=== PATIENT | male | born 1980 | race Caucasian/White ===

== ENCOUNTER 2019-06-30 11:26 | Emergency (ER) | payer OTHER ==
[2019-06-30] MEDS ORDERED: Sodium Chloride 0.9% 10 ML Syringe FLUSH PRN (11:54)
[2019-06-30] MEDS ORDERED: Sodium Chloride 0.9% 1,000 ML IV ONE (12:04)
--- NOTE | 2019-06-30 12:20 | CR ---
[id number] RAD/RAD Chest PA or AP 1V EXAM: FRONTAL CHEST INDICATION: TACHYCARDIA. COMPARISON: None. DISCUSSION: The lungs are hypoinflated with central vascular crowding and left base subsegmental atelectasis. Normal heart size. IMPRESSION: 1. Low lung volumes. Kwabena Knowles MD 06/30/19 [id number] Thank you for allowing us to participate in the care of your patient.
[2019-06-30 12:52] LABS: CHLORIDE,CL 97 mmol/L (54-184); SODIUM,NA 140 mmol/L (69-191)
[2019-06-30 12:55] LABS: ANION GAP 20.3 mmol/L (10-20)
[2019-06-30] MEDS ORDERED: Iopamidol 612 MG/ML 100 ML Bottle IVPUSH ONE (13:19)
[2019-06-30] MEDS ORDERED: Lactated Ringers 1,000 ML IV ONE (13:36)
[2019-06-30 13:42] LABS: BUPRENORPHINE,URINE NEGATIVE (NEGATIVE); MARIJUANA,URINE NEGATIVE (NEGATIVE); METHYLENEDIOXYMETHAMP,UR NEGATIVE (NEGATIVE); PHENCYCLIDINE,URINE NEGATIVE (NEGATIVE)
--- NOTE | 2019-06-30 14:12 | CT ---
[id number] CT/CT Chest Abdomen Pelvis W IV EXAM: CHEST ABDOMEN AND PELVIS CT WITH CONTRAST INDICATION: Weakness, tachycardia and elevated white blood cell count. COMPARISON: None. DISCUSSION: Enlarged 23 x 14 mm right axillary lymph node. No other enlarged axillary, hilar or mediastinal nodes are identified. The lungs are clear. No pleural or pericardial effusion. No infiltrates. The liver is enlarged with diffuse fatty infiltration and heterogeneous enhancement, but no discrete liver lesion identified. Findings are suggestive of chronic underlying liver disease. The gallbladder is partially decompressed and has a thick-walled appearance likely relating to the underlying liver disease. If there is concern for cholecystitis HIDA scan or ultrasound may be useful for further evaluation. A mild thick-walled appearance of the bladder is thought to relate to incomplete distention, correlate with urinalysis as clinically indicated. Mild apparent wall thickening of the proximal colon likely from incomplete distention and liver disease. If there is diarrhea, colitis would be another consideration. Small volume ascites. Mild retroperitoneal adenopathy with direct sales representative node measuring 45 x 7 mm. The kidneys, adrenal glands, spleen, pancreas and small bowel are unremarkable. The appendix is not well seen. The osseous structures are unremarkable. IMPRESSION: 1. Mild right axillary and retroperitoneal lymphadenopathy. 2. Enlarged liver with fatty infiltration and heterogeneous enhancement concerning for chronic underlying liver disease. 3. Small ascites. 4. A mild thick-walled appearance of the colon and gallbladder thought to be from incomplete distention and underlying liver disease. Dedicated gallbladder imaging with ultrasound/HIDA scan could provide further evaluation if clinical signs and symptoms are equivocal. Kwabena Knowles MD 06/30/19 [id number] Thank you for allowing us to participate in the care of your patient.
[2019-06-30] MEDS ORDERED: cefTRIAXone 2 GM Vial IVPUSH ONE (14:14)
[2019-06-30] MEDS ORDERED: LORazepam 2 MG/ML SDV IVPUSH ONE (14:48)
--- NOTE | 2019-06-30 14:57 | EDM.PDOC ---
ED HPI GENERAL MEDICAL PROBLEM - General Chief Complaint: Cardiovascular Problem Stated Complaint: FAST HEART RATE Time Seen by Provider: 06/30/19 11:33 Source of Information: Reports: Patient, Family History Limitations: Reports: No Limitations - History of Present Illness INITIAL COMMENTS - FREE TEXT/NARRATIVE: Pt. presents to ER with complaints of racing heart. Pt. states that he drank a large amount of alcohol last night, and noticed his heart was racing when he woke this AM. He denies any chest pain. No shortness of breath. Pt. denies any symptoms other than palpitations. He denies any nausea or vomiting. No abdominal pain or diarrhea. He denies any stimulant or use of other drugs. He denies any recent trauma. No recent illness. Denies any chest congestion, sore throat, sinus pain, or skin rash. He has been diaphoretic today. Pt. states that he drinks approx. 1/2 of a large bottle of vodka a day. He thinks they are liter bottles. He states that sometimes he also drinks beer. He states that he often feels anxious and agitated if he is unable to consume alcohol. He has never been formally diagnosed with alcoholism, and has never been through treatment, however he is interested in this. Onset: Today Onset Date: 06/30/19 Location: Reports: Chest, Generalized Associated Symptoms: Reports: Diaphoresis. Denies: Confusion, Chest Pain, Cough , cough w sputum, Fever/Chills, Headaches, Nausea/Vomiting, Rash, Seizure, Shortness of Breath, Weakness - Related Data Allergies Allergy/AdvReac Type Severity Reaction Status Date / Time No Known Allergies Allergy Verified 06/30/19 11:58 Home Meds: Home Meds Albuterol Sulfate [Albuterol Sulfate Hfa] 2 puff Q4H PRN 06/30/19 [History] Budesonide/Formoterol Fumarate [Symbicort 160-4.5 Mcg Inhaler] 2 puff BID [History] Fluticasone Propionate 1 spray BID 06/30/19 [History] amLODIPine [Norvasc] 5 mg DAILY 06/30/19 [History] Past Medical History Cardiovascular History: Reports: Hypertension Respiratory History: Reports: Asthma Social & Family History - Family History Family Medical History: Noncontributory - Tobacco Use Smoking Status *Q: Never Smoker - Recreational Drug Use Recreational Drug Use: No ED ROS GENERAL - Review of Systems Review Of Systems: See Below Constitutional: Reports: No Symptoms HEENT: Reports: No Symptoms Respiratory: Reports: No Symptoms Cardiovascular: Reports: Palpitations. Denies: Chest Pain, Dyspnea on Exertion , Lightheadedness, Orthopnea, PND, Syncope Endocrine: Reports: No Symptoms GI/Abdominal: Reports: No Symptoms : Reports: No Symptoms Musculoskeletal: Reports: No Symptoms Skin: Reports: No Symptoms Neurological: Reports: No Symptoms Psychiatric: Reports: Agitation, Anxiety Hematologic/Lymphatic: Reports: No Symptoms Immunologic: Reports: No Symptoms ED EXAM, GENERAL - Physical Exam Exam: See Below Exam Limited By: No Limitations General Appearance: Alert, WD/WN, No Apparent Distress Eye Exam: Bilateral Eye: EOMI, Normal Fundi, Normal Inspection, PERRL Nose: Normal Inspection, No Blood Throat/Mouth: Normal Inspection, Normal Lips, Normal Teeth, Normal Gums, Normal Oropharynx, Normal Voice, No Airway Compromise Head: Atraumatic, Normocephalic Neck: Normal Inspection, Supple, Non-Tender, Full Range of Motion Respiratory/Chest: No Respiratory Distress, Lungs Clear, Normal Breath Sounds, No Accessory Muscle Use, Chest Non-Tender Cardiovascular: Normal Peripheral Pulses, No Edema, No Gallop, No JVD, No Murmur , No Rub, Tachycardia Peripheral Pulses: 4+: Radial (R) GI/Abdominal: Normal Bowel Sounds, Soft, Non-Tender, No Organomegaly, No Distention, No Abnormal Bruit, No Mass, Pelvis Stable (Male) Exam: Deferred Rectal (Males) Exam: Deferred Back Exam: Normal Inspection, Full Range of Motion Extremities: Normal Inspection, Normal Range of Motion, Non-Tender, No Pedal Edema, Normal Capillary Refill Neurological: Alert, Oriented, CN II-XII Intact, Normal Cognition, Normal Gait, Normal Reflexes, No Motor/Sensory Deficits Psychiatric: Anxious Skin Exam: Cool, Diaphoretic Lymphatic: No Adenopathy EKG INTERPRETATION Rhythm: NSR [place]: Normal P-Wave: Present QRS: Normal ST-T: Normal QT: Normal Course - Vital Signs Last Recorded V/S: Last Vital Signs Temp 36.6 C 06/30/19 11:33 Pulse 130 H 06/30/19 11:33 Resp 18 06/30/19 11:33 BP 159/104 H 06/30/19 12:13 Pulse Ox 94 L 06/30/19 11:33 - Orders/Labs/Meds Orders: Active Orders 24 hr Category Date Time Status CULTURE BLOOD [BC] Stat Lab 06/30/19 13:54 Received CULTURE BLOOD [BC] Stat Lab 06/30/19 14:01 Received VITAMIN B12 [REF] Stat Lab 06/30/19 12:17 Received Lactated Ringers [Ringers, Lactated] 1,000 ml Med 06/30/19 13:36 Active IV ONETIME Sodium Chloride 0.9% [Saline Flush] Med 06/30/19 11:54 Active 10 ml FLUSH ASDIRECTED PRN Blood Culture x2 Reflex Set [OM.PC] Stat Oth 06/30/19 13:11 Ordered Peripheral IV Insertion Adult [OM.PC] Routine Oth 06/30/19 11:55 Ordered Medication Orders Lactated Ringer's (Ringers, Lactated) 1,000 mls @ 25 mls/hr IV ONETIME ONE Stop: 07/02/19 05:35 Last Admin: 06/30/19 13:37 Dose: 25 mls/hr Sodium Chloride (Saline Flush) 10 ml FLUSH ASDIRECTED PRN PRN Reason: Keep Vein Open Labs: Laboratory Tests 06/30/19 06/30/19 06/30/19 Range/Units 12:17 12:17 12:17 WBC 17.8 H (4.0-10.0) x10^3/uL RBC 4.33 L (4.5-6.0) x10^6/uL Hgb 13.8 L (14.0-18.0) g/dL Hct 39.8 L (40.0-52.0) % MCV 91.9 (78.0-93.0) fL MCH 31.9 (26.0-32.0) pg MCHC 34.7 (32.0-36.0) g/dL RDW Coeff of [place]erson 14.6 (10.0-15.0) % Plt Count 280 (130-400) x10^3/uL Neut % (Auto) 85.9 H (50.0-80.0) % Lymph % (Auto) 4.8 L (25.0-50.0) % [place] % (Auto) 9.0 (2.0-11.0) % Eos % (Auto) 0.1 (0.0-4.0) % Baso % (Auto) 0.2 (0.2-1.2) % PT 14.5 H (10.0-12.8) SEC INR 1.3 L (2.0-3.5) Sodium 140 (69-191) mmol/L Potassium 3.3 L (1.5-9.9) mmol/L Chloride 97 L (54-184) mmol/L Carbon Dioxide 26 (21-32) mmol/L Anion Gap 20.3 H (10-20) mmol/L BUN 4 L (7-18) mg/dL Creatinine 0.6 L (0.70-1.30) mg/dL Est Cr Clr Drug Dosing 153.59 mL/min Estimated GFR (MDRD) > 60 Glucose 161 H (74-106) mg/dL Lactic Acid (0.4-2.0) mmol/L Calcium 8.2 L (8.5-10.1) mg/dL Corrected Calcium 8.76 (8.5-10.1) mg/dL Phosphorus 2.8 (2.6-4.7) mg/dL Magnesium 1.5 L (1.8-2.4) mg/dL Total Bilirubin 2.7 H (0.2-1.0) mg/dL AST 275 H (15-37) U/L ALT 120 H (16-63) U/L Alkaline Phosphatase 306 H (46-116) U/L Troponin I < 0.017 (<=0.056) ng/mL C-Reactive Protein 6.3 H (<=0.9) mg/dL NT-Pro-B Natriuret Pep 34 (<=125) pg/mL Total Protein 7.3 (6.4-8.2) g/dL Albumin 3.3 L (3.4-5.0) g/dL Globulin 4.0 Albumin/Globulin Ratio 0.83 Urine Color (YELLOW) Urine Appearance (CLEAR) Urine pH (5.0-8.0) Ur Specific [place] Urine Protein (NEGATIVE) mg/dL Urine Glucose (UA) (NEGATIVE) mg/dL Urine Ketones (NEGATIVE) mg/dL Urine Occult Blood (NEGATIVE) Urine Nitrite (NEGATIVE) Urine Bilirubin (NEGATIVE) Urine Urobilinogen (0.2) EU/dL Ur Leukocyte Esterase (NEGATIVE) Urine RBC (NOT SEEN) /HPF Urine WBC (NOT SEEN) /HPF Ur Squamous Epith Cells (NEGATIVE) /HPF Amorphous Sediment Urine Bacteria (NEGATIVE) /HPF Urine Mucus (NEGATIVE) /LPF Urine Opiates Screen (NEGATIVE) Ur Buprenorphine Scrn (NEGATIVE) Ur Oxycodone Screen (NEGATIVE) Ur EDDP (Meth Metab) (NEGATIVE) Urine Methadone Screen (NEGATIVE) Ur Barbituates Screen (NEGATIVE) Ur Tricyclics Screen (NEGATIVE) Ur Phencyclidine Scrn (NEGATIVE) Ur Amphetamines Screen (NEGATIVE) U Methamphetamines Scrn (NEGATIVE) Urine MDMA Screen (NEGATIVE) U Benzodiazepines Scrn (NEGATIVE) Urine Cocaine Screen (NEGATIVE) U Marijuana (THC) Screen (NEGATIVE) Ethyl Alcohol 22 H (0-3) mg/dL 06/30/19 06/30/19 06/30/19 Range/Units 12:17 13:15 13:15 WBC (4.0-10.0) x10^3/uL RBC (4.5-6.0) x10^6/uL Hgb (14.0-18.0) g/dL Hct (40.0-52.0) % MCV (78.0-93.0) fL MCH (26.0-32.0) pg MCHC (32.0-36.0) g/dL RDW Coeff of [place] (10.0-15.0) % Plt Count (130-400) x10^3/uL Neut % (Auto) (50.0-80.0) % Lymph % (Auto) (25.0-50.0) % [place] % (Auto) (2.0-11.0) % Eos % (Auto) (0.0-4.0) % Baso % (Auto) (0.2-1.2) % PT (10.0-12.8) SEC INR (2.0-3.5) Sodium (69-191) mmol/L Potassium (1.5-9.9) mmol/L Chloride (54-184) mmol/L Carbon Dioxide (21-32) mmol/L Anion Gap (10-20) mmol/L BUN (7-18) mg/dL Creatinine (0.70-1.30) mg/dL Est Cr Clr Drug Dosing mL/min Estimated GFR (MDRD) Glucose (74-106) mg/dL Lactic Acid 3.5 H* (0.4-2.0) mmol/L Calcium (8.5-10.1) mg/dL Corrected Calcium (8.5-10.1) mg/dL Phosphorus (2.6-4.7) mg/dL Magnesium (1.8-2.4) mg/dL Total Bilirubin (0.2-1.0) mg/dL AST (15-37) U/L ALT (16-63) U/L Alkaline Phosphatase (46-116) U/L Troponin I (<=0.056) ng/mL C-Reactive Protein (<=0.9) mg/dL NT-Pro-B Natriuret Pep (<=125) pg/mL Total Protein (6.4-8.2) g/dL Albumin (3.4-5.0) g/dL Globulin Albumin/Globulin Ratio Urine Color Yellow (YELLOW) Urine Appearance Cloudy H (CLEAR) Urine pH 6.0 (5.0-8.0) Ur Specific [place] 1.025 Urine Protein >=300 H (NEGATIVE) mg/dL Urine Glucose (UA) 100 H (NEGATIVE) mg/dL Urine Ketones 15 H (NEGATIVE) mg/dL Urine Occult Blood Trace-lysed H (NEGATIVE) Urine Nitrite Positive H (NEGATIVE) Urine Bilirubin Large H (NEGATIVE) Urine Urobilinogen >=8.0 H (0.2) EU/dL Ur Leukocyte Esterase Negative (NEGATIVE) Urine RBC 5-10 H (NOT SEEN) /HPF Urine WBC 0-5 (NOT SEEN) /HPF Ur Squamous Epith Cells Few H (NEGATIVE) /HPF Amorphous Sediment Few Urine Bacteria Few H (NEGATIVE) /HPF Urine Mucus Many H (NEGATIVE) /LPF Urine Opiates Screen Negative (NEGATIVE) Ur Buprenorphine Scrn Negative (NEGATIVE) Ur Oxycodone Screen Negative (NEGATIVE) Ur EDDP (Meth Metab) Negative (NEGATIVE) Urine Methadone Screen Negative (NEGATIVE) Ur Barbituates Screen Negative (NEGATIVE) Ur Tricyclics Screen Negative (NEGATIVE) Ur Phencyclidine Scrn Negative (NEGATIVE) Ur Amphetamines Screen Negative (NEGATIVE) U Methamphetamines Scrn Negative (NEGATIVE) Urine MDMA Screen Negative (NEGATIVE) U Benzodiazepines Scrn Negative (NEGATIVE) Urine Cocaine Screen Negative (NEGATIVE) U Marijuana (THC) Screen Negative (NEGATIVE) Ethyl Alcohol (0-3) mg/dL Meds: Medications Generic Name Dose Route Start Last Admin Trade Name Elisabeth PRN Reason Stop Dose Admin Lactated Ringer's 1,000 mls @ 25 mls/hr 06/30/19 13:36 06/30/19 13:37 Ringers, Lactated IV 07/02/19 05:35 25 mls/hr ONETIME ONE Administration Sodium Chloride 10 ml 06/30/19 11:54 Saline Flush FLUSH ASDIRECTED PRN Keep Vein Open Discontinued Medications Generic Name Dose Route Start Last Admin Trade Name Elisabeth PRN Reason Stop Dose Admin Ceftriaxone Sodium 2 gm 06/30/19 14:14 06/30/19 14:25 Rocephin IVPUSH 06/30/19 14:15 2 gm STAT ONE Administration Sodium Chloride 1,000 mls @ 999 mls/hr 06/30/19 12:04 06/30/19 11:55 Normal Saline IV 06/30/19 13:04 999 mls/hr ONETIME ONE Administration Iopamidol 100 ml 06/30/19 13:19 06/30/19 13:26 Isovue-300 (61%) IVPUSH 06/30/19 13:20 100 ml ONETIME ONE Administration Lorazepam 1 mg 06/30/19 14:48 06/30/19 14:57 Ativan IVPUSH 06/30/19 14:49 1 mg STAT ONE Administration - Radiology Interpretation Free Text/Narrative:: CT chest, abdomen and pelvis were obtained. Pt. had evidence of some thickening of the gallbladder wall but no significant inflammatory changes. No other obvious source of infection noted. Appendix was not visualized. His liver is enlarged with fatty infiltration. Chest x-ray was negative of obvious infiltrate. - Re-Assessments/Exams Free Text/Narrative Re-Assessment/Exam: IV access was established. Pt. was given a total so far of approx. 1800ml of NS. He remains tachy at 117. He was also given ativan 1 mg IV, as he appeared agitated. He was initially unable to provide a urine sample, but when it was obtained he was noted to have a UTI. He was given rocephin 2 gm IV in ER. EKG did not reveal any acute ST or T wave abnormality. Trop I was negative. Departure - Departure Time of Disposition: 15:14 Disposition: DC/Tfer to Acute Hospital 02 Reason for Transfer *Q: Other Clinical Impression: Sepsis due to urinary tract infection, Alcohol dependence, inpatient tx Referrals: Fareed Johnson MD [Primary Care Provider] - Forms: ED Department Discharge - Problem List Review Problem List Initiated/Reviewed/Updated: Yes - My Orders Last 24 Hours: My Active Orders 06/30/19 11:54 Sodium Chloride 0.9% [Saline Flush] 10 ml FLUSH ASDIRECTED PRN 06/30/19 11:55 Peripheral IV Insertion Adult [OM.PC] Routine 06/30/19 12:17 VITAMIN B12 [REF] Stat 06/30/19 13:11 Blood Culture x2 Reflex Set [OM.PC] Stat 06/30/19 13:36 Lactated Ringers [Ringers, Lactated] 1,000 ml IV ONETIME 06/30/19 13:54 CULTURE BLOOD [BC] Stat 06/30/19 14:01 CULTURE BLOOD [BC] Stat - Assessment/Plan Last 24 Hours: My Active Orders 06/30/19 11:54 Sodium Chloride 0.9% [Saline Flush] 10 ml FLUSH ASDIRECTED PRN 06/30/19 11:55 Peripheral IV Insertion Adult [OM.PC] Routine 06/30/19 12:17 VITAMIN B12 [REF] Stat 06/30/19 13:11 Blood Culture x2 Reflex Set [OM.PC] Stat 06/30/19 13:36 Lactated Ringers [Ringers, Lactated] 1,000 ml IV ONETIME 06/30/19 13:54 CULTURE BLOOD [BC] Stat 06/30/19 14:01 CULTURE BLOOD [BC] Stat Plan: Pt. will be transferred to [facility] in [place]. I spoke with Dr. Dennis who accepts the patient in transfer. We are unable to admit the patient to our facility due to staffing shortages. He will be transported via [facility] ground ambulance. Will continue IV fluids at 250/hr during transport. All questions were answered.
== END 2019-06-30 16:08 | disposition short-term general hospital (02) ==
LOC: VM.ED 11:26
DX: A41.9 Sepsis, unspecified organism (principal); N39.0 Urinary tract infection, site not specified; F10.20 Alcohol dependence, uncomplicated; Y90.1 Blood alcohol level of 20-39 mg/100 ml; J45.909 Unspecified asthma, uncomplicated; I10 Essential (primary) hypertension; Z79.899 Other long term (current) drug therapy
CPT/HCPCS: 36415; 71045; 71260; 74177; 80053; 80305-QW; 81001; 82607; 83605; 83735; 83880; 84100; 84484; 85025; 85610; 86140; 87040; 96361; 96374; 96375; 99285-25; G0480; J0696; J2060; J7030; J7120; Q9967